=== PATIENT | female | born 1980 | race Caucasian/White ===

== ENCOUNTER 2016-06-28 07:26 | Emergency (ER) | payer OTHER ==
--- NOTE | 2016-06-28 07:40 | Emergency Department Record ---
History of Present Illness - General Chief complaint: ENT Stated complaint: SORE THROAT Time Seen by Provider: 06/28/16 07:40 Source: Patient Mode of Arrival: Ambulatory Limitations: No limitations - History of Present Illness Initial comments: The patient is here due to a [address] a [address] with nasal congestion. She did have a mild cough but that is better now. There is no fever, chills or SOB. MD complaint: Sore throat Onset/Timin -: Week(s) Location: Throat Severity: Moderate Severity scale (1-10): 6 Quality: Aching Consistency: Constant Improves with: None Worsens with: None Associated Symptoms: Cough, Pain with swallowing, Sore throat - Related Data Home Medications Medication Instructions Recorded Confirmed Last Taken Etonogestrel/Ethinyl Estradiol 1 vagring VG QMONTH vagring 03/04/15 06/28/16 [Nuvaring Vaginal Ring] Multivitamin [Multivitamins] 1 each PO DAILY cap 03/04/15 06/28/16 06/27/16 Loratadine [Claritin] 10 mg PO DAILY tab.rapdis 04/08/16 06/28/16 06/27/16 Previous Rx's Medication Instructions Recorded Fluticasone Propionate [Flonase] 2 spray EACH NARES DAILY #1 bottle 06/28/16 Prednisone [Prednisone 20Mg] 40 mg PO DAILY #8 tab 06/28/16 Allergies Allergy/AdvReac Type Severity Reaction Status Date / Time Penicillins AdvReac VOMITING Verified 06/28/16 07:38 Travel Screening - Travel/Exposure Within Last 30 Days Have you traveled within the last 30 days?: No Review of Systems Constitutional: Denies: Chills, Fever Eyes: Denies: Eye discharge ENT: Reports: Congestion, Throat pain. Denies: Ear pain Respiratory: Reports: Cough. Denies: Dyspnea Past Medical History - SOCIAL HISTORY Smoking Status: Never smoker Alcohol Use: None Drug Use: None - RESPIRATORY Hx Respiratory Disorders: No - CARDIOVASCULAR Hx Cardio Disorders: Yes Comment:: high cholestrol - NEURO Hx Neuro Disorders: No - GI Hx GI Disorders: No - Hx Genitourinary Disorders: Yes Hx UTI: Yes - ENDOCRINE Hx Endocrine Disorders: Yes Hx Thyroid Disease: Yes (while ) - MUSCULOSKELETAL Hx Musculoskeletal Disorders: No - PSYCH Hx Psych Problems: No - HEMATOLOGY/ONCOLOGY Hx Hematology/Oncology Disorders: Yes Hx Anemia: Yes Family Medical History Any Significant Family History?: Yes Hx Alcohol Use: Grandparents Hx Cancer: Grandparents Hx Dementia: Grandparents Hx Diabetes: Grandparents Hx Heart Disease: Grandparents Hx Resp Disorders: Grandparents Physical Exam - General General Appearance: Alert, Oriented x3, Cooperative, No acute distress - Head Head exam: Atraumatic, Normocephalic, Normal inspection - Eye Eye exam: Normal appearance, PERRL - ENT ENT exam: TM's normal bilaterally. negative: Normal exam, Normal orophraynx Teeth exam: Other Throat exam: Tonsillar erythema. negative: Normal inspection, Tonsillomegaly, Tonsillar exudate - Neck Neck exam: Normal inspection, Full ROM. negative: Lymphadenopathy, Meningismus , Tenderness - Respiratory Respiratory exam: Normal lung sounds bilaterally. negative: Respiratory distress - Cardiovascular Cardiovascular Exam: Regular rate, Normal rhythm, Normal heart sounds Course Vital Signs 06/28/16 07:34 Temperature 98.0 F Pulse Rate 90 Respiratory 20 Rate Blood Pressure 147/96 Pulse Ox 95 - Reevaluation(s) Reevaluation #1: The patient is doing very well. I did explain the neg tests to the patient and that I do believe she has a viral URI. 06/28/16 08:17 Disposition Disposition: Discharge Clinical Impression: Viral upper respiratory illness Disposition: Home, Self-Care Condition: (1) Good Instructions: Upper Respiratory Infection, Bridal Consultant (GEN) Additional Instructions: Please take the Flonase and Prednisone as directed. Please see your PCP if not better in 3 days and return to the ER if worse. Prescriptions: Fluticasone Propionate [Flonase] 2 spray EACH NARES DAILY #1 bottle Prednisone [Prednisone 20Mg] 40 mg PO DAILY #8 tab Forms: Patient Portal Access Time of Disposition: 08:17
[2016-06-28 08:10] LABS: INFLUENZA A NEGATIVE (NEGATIVE); INFLUENZA B NEGATIVE (NEGATIVE); STREP A SCREEN NEGATIVE (NEGATIVE)
== END 2016-06-28 08:22 | disposition home or self-care (01) ==
LOC: ER 07:26
DX: J06.9 Acute upper respiratory infection, unspecified (principal); R05 Cough
CPT/HCPCS: 87400; 87880; 99282